=== PATIENT | male | born 1945 | race African-American/Black ===

== ENCOUNTER 2025-08-13 08:32 | Inpatient (IN) | payer BC, MEDICARE ==
[~2025-08-13] VITALS: Ht 203.2 cm; Wt 136.1 kg
[~2025-08-13 08:32] MED LIST: ASPI-867 PO; CHOL100044 PO; CLOP75TA33 PO; FURO40TA5 PO; GLIP10TA17 PO; LISI20TA31 PO; METF-416 PO; METO-539 PO; POTA-354 PO; SIMV-46 PO
[2025-08-13 08:49] VITALS: O2SAT 98
[2025-08-13] MEDS ORDERED: MECL-217 MT (09:11)
[2025-08-13] MEDS ORDERED: RIVA10TA MT (09:11)
[2025-08-13] MEDS ORDERED: TC025C15 TP (09:11)
[2025-08-13] MEDS ORDERED: TAMS-54 MT (09:11)
[2025-08-13] MEDS ORDERED: FINA1TAB14 MT (09:11)
[2025-08-13] MEDS ORDERED: INSU100I28 SQ (09:11)
[2025-08-13] MEDS ORDERED: LOSA25TA26 MT (09:11)
[2025-08-13 09:56] LABS: CLARITY URINE CLOUDY (CLEAR); COLOR URINE ORANGE (YELLOW); GLUCOSE URINE 3+ (NEGATIVE); KETONES URINE 2+ (NEGATIVE); LEUKOCYTE ESTERASE URINE 2+ (NEGATIVE); NITRITE URINE POSITIVE (NEGATIVE); OCCULT BLOOD URINE 3+ (NEGATIVE); PH URINE 5.5 (4.5-8.0); PROTEIN URINE 2+ (NEGATIVE); SPECIFIC GRAVITY URINE 1.026 (1.005-1.030); UROBILINOGEN URINE 1.0 E.U./dL (0.2-1.0)
[2025-08-13] MEDS: CEFTRIAXONE 1GM/50ML 50 ML IV ONE (09:56)
[2025-08-13] MEDS: SODIUM CHLORIDE 0.9% (SEPSIS BOLUS) IV ONE (10:01)
[2025-08-13 10:11] LABS: BACTERIA URINE 2+; RBC URINE TNTC /hpf (0-2); SQUAMOUS EPITHELIAL CELL URINE 1+ /lpf (RARE/1+); WBC URINE 25-50 /hpf (0-2); YEAST URINE NONE SEEN
[2025-08-13 10:12] LABS: TRICHOMONAS URINE 1+
[2025-08-13] MEDS: SODIUM CHLORIDE 0.9% 1,000 ML IV SCH (10:30)
[2025-08-13] MEDS ORDERED: NALOXONE HCL 0.4MG/ML VIAL IV PRN (10:30)
[2025-08-13] MEDS ORDERED: ONDANSETRON HCL 4MG/2ML INJ IV PRN (10:30)
[2025-08-13] MEDS ORDERED: HYDROCODONE/ACETAMINOPHEN 5/325MG TABLET PO PRN (10:30)
[2025-08-13 10:51] LABS: BASOPHILS % 0.3 % (0.0-2.0); EOSINOPHILS % 0.6 % (0.0-5.0); HEMATOCRIT. 37.3 % (42.0-52.0); HEMOGLOBIN. 12.1 g/dL (14.0-18.0); LYMPHOCYTES % 9.8 % (20.0-50.0); MEAN PLATELET VOLUME 11.3 fl (7.4-10.4); MONOCYTES % 10.4 % (2.0-8.0); NEUTROPHILS % 78.9 % (40.0-76.0); PLATELET 150 x1000/uL (130-400); RED BLOOD CELL COUNT 4.24 mill/uL (4.7-6.1); RED CELL DISTRIBUTION WIDTH 14.4 % (11.6-14.6)
[2025-08-13 11:06] LABS: CREATININE 1.6 mg/dL (0.6-1.3); TROPONIN I HIGH SENSITIVITY 17 ng/L (3.0-53); UREA NITROGEN BLOOD 18 mg/dL (9-23)
[2025-08-13 11:07] LABS: ASPARTATE AMINOTRANSFERASE 43 IU/L (<34)
[2025-08-13 11:08] LABS: BILIRUBIN DIRECT 0.2 mg/dL (<=3.0); BILIRUBIN TOTAL 0.7 mg/dL (0.1-1.0); PROTEIN TOTAL 6.9 g/dL (6.0-8.3)
[2025-08-13] MEDS: LEVOFLOXACIN 250MG PREMIX 50 ML IV ONE (12:00)
[2025-08-13 12:05] LABS: INR 1.1
[2025-08-13 12:22] LABS: TROPONIN I HIGH SENSITIVITY 16 ng/L (3.0-53)
[2025-08-13 14:30] VITALS: BP 118/66; PULSE 74; RESP 20; TEMP 37.0296
[2025-08-13 15:15] LABS: TROPONIN I HIGH SENSITIVITY 17 ng/L (3.0-53)
[2025-08-13 16:00] VITALS: PULSE 57; RESP 19; TEMP 36.5; O2SAT 100
[2025-08-13] MEDS: GLIPIZIDE 10MG TABLET PO SCH (17:48)
[2025-08-13 17:57] VITALS: BP 123/61; PULSE 57; RESP 19; TEMP 36.5; O2SAT 100
[2025-08-13] MEDS ORDERED: DEXTROSE 50% WATER 50ML SYRINGE IV PRN (19:45)
[2025-08-13 20:00] VITALS: BP 125/58; PULSE 73; RESP 18; TEMP 36.5; O2SAT 96
[2025-08-13] MEDS: METOPROLOL TARTRATE 50MG TABLET PO SCH (20:42)
[2025-08-13] MEDS: BLOOD SUGAR DIAGNOSTIC STRIP TEST SCH (20:48)
[2025-08-13] MEDS ORDERED: INSULIN LISPRO 100 UNITS/ML SUBCUT SCH (21:00)
[2025-08-13] MEDS: INSULIN LISPRO 100 UNITS/ML SUBCUT SCH (21:07)
[2025-08-14] VITALS: BP 102/40; PULSE 77; RESP 18; TEMP 36.4; O2SAT 97
[2025-08-14 00:28] LABS: TROPONIN I HIGH SENSITIVITY 16 ng/L (3.0-53)
[2025-08-14 04:00] VITALS: BP 123/69; PULSE 81; RESP 18; TEMP 36.4; O2SAT 99
[2025-08-14 08:00] VITALS: BP 144/68; PULSE 93; RESP 18; TEMP 36.3; O2SAT 96
[2025-08-14 08:23] LABS: HEMATOCRIT. 35.0 % (42.0-52.0); HEMOGLOBIN. 11.4 g/dL (14.0-18.0); MEAN PLATELET VOLUME 10.6 fl (7.4-10.4); PLATELET 138 x1000/uL (130-400); RED BLOOD CELL COUNT 4.01 mill/uL (4.7-6.1); RED CELL DISTRIBUTION WIDTH 14.6 % (11.6-14.6)
[2025-08-14 08:41] LABS: CREATININE 1.2 mg/dL (0.6-1.3)
[2025-08-14 08:44] LABS: UREA NITROGEN BLOOD 16 mg/dL (9-23)
[2025-08-14] MEDS: LISINOPRIL 20MG TABLET PO SCH (09:20)
[2025-08-14] MEDS: CEFTRIAXONE 1GM/50ML 50 ML IV SCH (10:21)
[2025-08-14 12:00] VITALS: BP 135/58; PULSE 75; RESP 18; TEMP 36.9; O2SAT 95
[2025-08-14 16:00] VITALS: BP 104/59; PULSE 68; RESP 18; TEMP 36.4; O2SAT 99
[2025-08-14] MEDS: FINASTERIDE 5MG TABLET PO SCH (16:33)
[2025-08-14 17:09] LABS: EOSINOPHILS % MANUAL 2.0 % (0.0-5.0); LYMPHOCYTES % MANUAL 19.0 % (20.0-50.0); MONOCYTES % MANUAL 14.0 % (2.0-8.0); NEUTROPHILS % MANUAL 65.0 % (45.0-75.0); PLATELET ESTIMATE SLIGHTLY DECREASED
[2025-08-14 20:00] VITALS: BP 104/61; PULSE 74; RESP 17; TEMP 36.4; O2SAT 96
[2025-08-15] VITALS: BP 97/49; PULSE 78; RESP 16; TEMP 36.9; O2SAT 99
[2025-08-15 04:00] VITALS: BP 98/52; PULSE 70; RESP 17; TEMP 36.4; O2SAT 97
[2025-08-15 08:00] VITALS: BP 131/70; PULSE 80; RESP 16; TEMP 36.2; O2SAT 98
[2025-08-15 12:00] VITALS: BP 115/66; PULSE 77; RESP 16; TEMP 36.5; O2SAT 99
[2025-08-15] MEDS: CEFTRIAXONE 2GM/50ML 50 ML IV SCH (12:49)
[2025-08-15 16:00] VITALS: BP 145/86; PULSE 76; RESP 16; TEMP 36.4; O2SAT 97
[2025-08-15 20:00] VITALS: BP 146/68; PULSE 88; RESP 17; TEMP 37.2; O2SAT 96
[2025-08-15] MEDS: NITROFURANTOIN 100MG M/M CAPSULE PO SCH (22:04)
[2025-08-16] VITALS: BP 112/45; PULSE 70; RESP 18; TEMP 36.2; O2SAT 94
[2025-08-16 04:00] VITALS: BP 102/56; PULSE 79; RESP 18; TEMP 36.4; O2SAT 79
[2025-08-16 08:00] VITALS: BP 107/60; PULSE 76; RESP 16; TEMP 36.2; O2SAT 76
[2025-08-16 08:56] LABS: BASOPHILS % 0.6 % (0.0-2.0); EOSINOPHILS % 4.3 % (0.0-5.0); HEMATOCRIT. 35.1 % (42.0-52.0); HEMOGLOBIN. 11.6 g/dL (14.0-18.0); LYMPHOCYTES % 26.8 % (20.0-50.0); MEAN PLATELET VOLUME 10.6 fl (7.4-10.4); MONOCYTES % 13.3 % (2.0-8.0); NEUTROPHILS % 55.0 % (40.0-76.0); PLATELET 171 x1000/uL (130-400); RED BLOOD CELL COUNT 4.01 mill/uL (4.7-6.1); RED CELL DISTRIBUTION WIDTH 14.8 % (11.6-14.6)
[2025-08-16 09:11] LABS: CREATININE 1.1 mg/dL (0.6-1.3); UREA NITROGEN BLOOD 11 mg/dL (9-23)
[2025-08-16 16:00] VITALS: BP 140/93; PULSE 90; RESP 18; TEMP 36.3; O2SAT 99
[2025-08-16 20:00] VITALS: BP 151/73; PULSE 84; RESP 18; TEMP 36.5; O2SAT 98
[2025-08-17] VITALS: BP 131/69; PULSE 77; RESP 18; TEMP 36.4; O2SAT 98
[2025-08-17 04:00] VITALS: BP 144/65; PULSE 78; RESP 18; TEMP 36.1; O2SAT 97
[2025-08-17 06:49] LABS: BASOPHILS % 0.4 % (0.0-2.0); EOSINOPHILS % 5.1 % (0.0-5.0); HEMATOCRIT. 34.6 % (42.0-52.0); HEMOGLOBIN. 11.1 g/dL (14.0-18.0); LYMPHOCYTES % 27.2 % (20.0-50.0); MEAN PLATELET VOLUME 9.8 fl (7.4-10.4); MONOCYTES % 11.5 % (2.0-8.0); NEUTROPHILS % 55.8 % (40.0-76.0); PLATELET 189 x1000/uL (130-400); RED BLOOD CELL COUNT 3.91 mill/uL (4.7-6.1); RED CELL DISTRIBUTION WIDTH 14.9 % (11.6-14.6)
[2025-08-17 06:59] LABS: CREATININE 1.1 mg/dL (0.6-1.3)
[2025-08-17 07:00] LABS: UREA NITROGEN BLOOD 8 mg/dL (9-23)
[2025-08-17] MEDS ORDERED: PROPOFOL 200MG/20ML VIAL IV ONE (07:37)
[2025-08-17] MEDS ORDERED: CEFAZOLIN SODIUM 1000MG/VIAL ONE (07:39)
[2025-08-17] MEDS ORDERED: LIDOCAINE HCL 1% 10 MG/ML 10ML VIAL ONE (07:39)
[2025-08-17] MEDS ORDERED: EPHEDRINE SULFATE 50MG/ML VIAL ONE (08:00)
[2025-08-17] MEDS ORDERED: ONDANSETRON HCL 4MG/2ML INJ ONE (08:03)
[2025-08-17] MEDS ORDERED: ACETAMINOPHEN 1000MG/100ML 100 ML IV ONE (08:08)
[2025-08-17] MEDS ORDERED: PHENYLEPHRINE HCL 10MG/ML 1ML IV ONE (08:10)
[2025-08-17] MEDS ORDERED: ONDANSETRON HCL 4MG/2ML INJ IV PRN (08:15)
[2025-08-17] MEDS: HYDROMORPHONE HCL/PF 1MG/ML INJ IV PRN (09:47)
[2025-08-17 12:00] VITALS: BP 145/83; PULSE 72; RESP 18; TEMP 36.2; O2SAT 99
[2025-08-17 16:00] VITALS: BP 151/65; PULSE 85; RESP 17; TEMP 36.3; O2SAT 99
[2025-08-17 20:00] VITALS: BP 182/81; PULSE 87; RESP 17; TEMP 36.8; O2SAT 97
[2025-08-17] MEDS: CLONIDINE 0.1MG TABLET PO PRN (20:20)
[2025-08-18] VITALS: BP 162/71; PULSE 82; RESP 16; TEMP 37; O2SAT 95
[2025-08-18 08:00] VITALS: BP 188/92; PULSE 102; RESP 20; TEMP 36.6; O2SAT 98
[2025-08-18] MEDS ORDERED: LIDOCAINE HCL 1% 10 MG/ML 10ML VIAL ONE (09:10)
[2025-08-18 12:00] VITALS: BP 176/92; PULSE 83; RESP 16; TEMP 36.3; O2SAT 98
[2025-08-18] MEDS: HYDRALAZINE HCL 25MG TABLET PO SCH (12:42)
[2025-08-18 13:52] VITALS: BP 168/87
[2025-08-18 20:00] VITALS: BP 192/83; PULSE 89; RESP 17; TEMP 36.8; O2SAT 94
[2025-08-18] MEDS: ACETAMINOPHEN 325MG TABLET PO PRN (21:33)
[2025-08-19] VITALS: BP 132/89; PULSE 94; RESP 17; TEMP 36.6; O2SAT 97
[2025-08-19 04:00] VITALS: BP 130/71; PULSE 89; RESP 16; TEMP 36.8; O2SAT 100
[2025-08-19 08:00] VITALS: BP 154/87; PULSE 93; RESP 22; TEMP 36.3; O2SAT 95
[2025-08-19 10:22] VITALS: BP 124/78; PULSE 101; RESP 34; O2SAT 94
[2025-08-19 10:45] VITALS: O2SAT 95
[2025-08-19] MEDS ORDERED: ASPIRIN 325MG TABLET PO SCH (10:45)
[2025-08-19] MEDS ORDERED: FENTANYL CITRATE/PF 2,500 MCG in SODIUM CHLORIDE 0.9% 200 ML IV PRN (11:15)
[2025-08-19] MEDS ORDERED: PROPOFOL 10MG/ML 100ML 100 ML IV PRN (11:15)
[2025-08-19] MEDS ORDERED: ACETAMINOPHEN 650MG SUPP PR PRN (11:15)
[2025-08-19] MEDS ORDERED: ACETAMINOPHEN 650MG/20.3ML UDC NG PRN (11:15)
[2025-08-19] MEDS ORDERED: NOREPINEPHRINE 8MG/250ML PMX 250 ML IV PRN (11:30)
[2025-08-19] MEDS ORDERED: DOPAMINE 800MG PREMIX (DOUBLE) 250 ML IV PRN (11:30)
[2025-08-19] MEDS: HEPARIN 5000 UNITS/ML VIAL IV SCH (11:49)
[2025-08-19] MEDS ORDERED: IPRATROPIUM/ALBUTEROL 0.5-3(2.5)MG/3ML NEB HHN SCH (12:00)
[2025-08-19] MEDS ORDERED: HEPARIN 25,000 UNITS PREMIX 250 ML IV SCH ×2 (12:00→12:30)
[2025-08-19] MEDS ORDERED: HEPARIN BOLUS PRN aPTT <36 IV (18:30)
[2025-08-19] MEDS ORDERED: HEPARIN BOLUS PRN aPTT 37-44 IV (18:30)
== END 2025-08-19 12:04 | DRG 853 ==
LOC: ER 08:32 → EDBEDREQTM 11:13 → EDBEDREQ 11:13 → ENRESERV 13:27 → 5WST 14:16 → CVICU 08-19 11:09
PROVIDERS: ADMIT Internal Medicine Nephrology; ATTEND Internal Medicine Nephrology
PROC: 0W3R8ZZ Control Bleeding in Genitourinary Tract, Via Natural or Artificial Opening Endoscopic (ICD-10-PCS; principal; 2025-08-17)
PROC: 02HV33Z Insertion of Infusion Device into Superior Vena Cava, Percutaneous Approach (ICD-10-PCS; 2025-08-18)
PROC: B548ZZA Ultrasonography of Superior Vena Cava, Guidance (ICD-10-PCS; 2025-08-18)
PROC: B5181ZA Fluoroscopy of Superior Vena Cava using Low Osmolar Contrast, Guidance (ICD-10-PCS; 2025-08-18)
PROC: 5A12012 Performance of Cardiac Output, Single, Manual (ICD-10-PCS; 2025-08-19)
PROC: 0BH17EZ Insertion of Endotracheal Airway into Trachea, Via Natural or Artificial Opening (ICD-10-PCS; 2025-08-19)
DX: A41.51 Sepsis due to Escherichia coli [E. coli] (principal); J96.01 Acute respiratory failure with hypoxia; N17.9 Acute kidney failure, unspecified; B96.20 Unspecified Escherichia coli [E. coli] as the cause of diseases classified elsewhere; E11.22 Type 2 diabetes mellitus with diabetic chronic kidney disease; D64.9 Anemia, unspecified; R65.20 Severe sepsis without septic shock; I46.9 Cardiac arrest, cause unspecified; G93.40 Encephalopathy, unspecified; E66.01 Morbid (severe) obesity due to excess calories; I12.9 Hypertensive chronic kidney disease with stage 1 through stage 4 chronic kidney disease, or unspecified chronic kidney disease; N18.30 Chronic kidney disease, stage 3 unspecified; J44.9 Chronic obstructive pulmonary disease, unspecified; I48.0 Paroxysmal atrial fibrillation; E11.42 Type 2 diabetes mellitus with diabetic polyneuropathy; R31.0 Gross hematuria; N40.0 Benign prostatic hyperplasia without lower urinary tract symptoms; E78.5 Hyperlipidemia, unspecified; I25.10 Atherosclerotic heart disease of native coronary artery without angina pectoris; Z68.33 Body mass index [BMI] 33.0-33.9, adult; Z85.46 Personal history of malignant neoplasm of prostate; Z95.1 Presence of aortocoronary bypass graft; Z95.5 Presence of coronary angioplasty implant and graft; Z79.01 Long term (current) use of anticoagulants; Z79.02 Long term (current) use of antithrombotics/antiplatelets; Z79.4 Long term (current) use of insulin; Z79.84 Long term (current) use of oral hypoglycemic drugs; Z79.899 Other long term (current) drug therapy; Z87.891 Personal history of nicotine dependence; Z95.0 Presence of cardiac pacemaker; Z82.49 Family history of ischemic heart disease and other diseases of the circulatory system
CPT/HCPCS: 36415; 71045; 77001; 80048; 80076; 81003; 82962; 83036; 83605; 83735; 83880; 84145; 84484; 85025; 87077; 87186; 93005; 93308; 93970; 99291; A4606; C1725; C1769; J0690; J0696; J1171; J1265; J1644; J1815; J1956; J2003; J2371; J2405; J2704; J3490; J7030; A4217; J0131